=== PATIENT | female | born 1990 | race Hispanic/Latino ===

== ENCOUNTER 2019-08-27 15:40 | Emergency (ER) | payer OTHER ==
[2019-08-27] MEDS ORDERED: Ketorolac Tromethamine 60 MG/2 ML VIAL ONE (17:40)
[2019-08-27] MEDS ORDERED: Ondansetron ODT 4 MG TAB ONE (17:59)
== END 2019-08-27 18:07 | disposition home or self-care (01) ==
LOC: ERS 15:40
DX: S06.0X0A Concussion without loss of consciousness, initial encounter (principal); S50.11XA Contusion of right forearm, initial encounter; S00.83XA Contusion of other part of head, initial encounter; M06.9 Rheumatoid arthritis, unspecified; Y04.1XXA Assault by human bite, initial encounter
CPT/HCPCS: 96372; 99283; J1885; Q0162

== ENCOUNTER 2024-02-17 08:17 | Outpatient (CLI) | payer BC | END 2024-02-17 08:18 | disposition home or self-care (01) | LOC: BICRAD 08:17 | PROVIDERS: ATTEND Family Medicine | DX: M05.742 Rheumatoid arthritis with rheumatoid factor of left hand without organ or systems involvement (principal); M85.88 Other specified disorders of bone density and structure, other site ==

== ENCOUNTER 2025-01-08 07:33 | Outpatient (CLI) | payer BC | END 2025-01-08 07:34 | disposition home or self-care (01) | LOC: BICULT 07:33 | PROVIDERS: ATTEND Family Medicine | DX: R59.0 Localized enlarged lymph nodes (principal) | CPT/HCPCS: 76536 ==